=== PATIENT | male | born 1995 | race African-American/Black ===

== ENCOUNTER 2021-12-02 18:12 | Emergency (ER) | payer BC, OTHER ==
[2021-12-02] MEDS ORDERED: Ondansetron PF 4 MG/2 ML Vial ONE (19:02)
[2021-12-02 19:05] LABS: #Basophils 0.1 10x3/uL (0.0-0.2); #Eosinphils 0.1 10x3/uL (0.0-0.5); #Monocytes 0.6 10x3/uL (0.0-1.1); #Neutrophils 6.4 10x3/uL (1.5-8.4); %Basophils 0.6 % (0.0-2.0); %Eosinophils 0.6 % (0.0-6.0); %Lymphocytes 19.3 % (18.0-47.0); %Monocytes 7.1 % (0.0-10.0); %Neutrophils 72.1 % (40.0-75.0); Hemoglobin 15.9 g/dL (13.5-17.5); Mean Corpuscular HGB CONC 34.3 g/dL (32.0-36.0); Mean Corpuscular Hemoglobin 32.3 pg (27.0-33.0); Mean Corpuscular Volume 94.3 fl (81.2-95.1); Mean Platelet Volume 12.5 fl (7.4-10.4); Platelet Count 121 10x3/uL (150-450); RBC Distribution Width 12.6 % (11.5-14.5); Red Blood Cell (RBC) Count 4.92 10x6/uL (4.32-5.72); White Blood Cell (WBC) Count 8.8 10x3/uL (3.5-10.5)
[2021-12-02 19:18] LABS: ALT (SGPT) 18 U/L (8-55); AST (SGOT) 22 U/L (5-34); Albumin 4.5 g/dL (3.5-5.0); Alkaline Phosphatase 118 U/L (40-110); Anion Gap 13 mmol/L (10-20); BUN (Urea Nitrogen) 9 mg/dL (8.9-20.6); Bilirubin, Total 0.8 mg/dL (0.2-1.2); Calc. Creatinine Clearance 0 mL/min (70-130); Calcium 9.9 mg/dL (7.8-10.44); Carbon Dioxide 28 mmol/L (22-29); Chloride 101 mmol/L (98-107); Glucose 86 mg/dL (70-105); Lipase 21 U/L (8-78); Potassium 3.3 mmol/L (3.5-5.1); Protein, Total 7.5 g/dL (6.0-8.3); Sodium 139 mmol/L (136-145)
[2021-12-02] MEDS ORDERED: Ketorolac Tromethamine 30 MG/ML VIAL ONE (20:20)
== END 2021-12-02 21:11 | disposition home or self-care (01) ==
LOC: CSHERS 18:12
DX: R51.9 Headache, unspecified (principal); I10 Essential (primary) hypertension; F17.210 Nicotine dependence, cigarettes, uncomplicated
CPT/HCPCS: 70450; 80053; 83690; 85025; 93005; 96374; 96375; J1885; J2405

== ENCOUNTER 2023-08-16 19:55 | Emergency (ER) | payer OTHER, SELFPAY ==
[2023-08-16] MEDS ORDERED: Ketorolac Tromethamine 30 MG (1 mL) VIAL ONE (20:19)
[2023-08-16 20:42] LABS: Hematocrit 41.8 % (38.8-50.0); Hemoglobin 14.1 g/dL (13.5-17.5); Mean Corpuscular HGB CONC 33.7 g/dL (32.0-36.0); Mean Corpuscular Hemoglobin 31.7 pg (27.0-33.0); Mean Corpuscular Volume 93.9 fl (81.2-95.1); Mean Platelet Volume 11.8 fl (7.4-10.4); Platelet Count 174 10x3/uL (150-450); RBC Distribution Width 13.1 % (11.5-14.5); Red Blood Cell (RBC) Count 4.45 10x6/uL (4.32-5.72); White Blood Cell (WBC) Count 11.1 10x3/uL (3.5-10.5)
[2023-08-16 20:59] LABS: ALT (SGPT) 19 U/L (8-55); AST (SGOT) 20 U/L (5-34); Albumin 4.2 g/dL (3.5-5.0); Alkaline Phosphatase 113 U/L (40-110); Anion Gap 13 mmol/L (10-20); BUN (Urea Nitrogen) 15 mg/dL (8.9-20.6); Bilirubin, Total 0.4 mg/dL (0.2-1.2); Calc. Creatinine Clearance 0 mL/min (70-130); Calcium 9.3 mg/dL (7.8-10.44); Carbon Dioxide 25 mmol/L (22-29); Chloride 104 mmol/L (98-107); Estimated GFR 96; Globulin 3.2 g/dL (2.4-3.5); Glucose 85 mg/dL (70-105); Potassium 3.5 mmol/L (3.5-5.1); Protein, Total 7.4 g/dL (6.0-8.3); Sodium 138 mmol/L (136-145)
[2023-08-16 21:41] LABS: MDiff Complete? YES
[2023-08-16 21:48] LABS: Bilirubin Neg (Negative); Blood, Urine 250 (Negative); Clarity Cloudy (Clear); Glucose, Urine (Dipstick) Normal (Negative); Ketone, Urine Negative (Negative); Leukocyte 500 (Negative); Nitrite Positive (Negative); Protein, Urine (Dipstick) 100 mg/dl (Neg-Trace); Urobilinogen Normal mg/dL (Less than 2)
[2023-08-16 21:56] LABS: Platelet Adequacy Comment Appears Adequate; RBC Morph Comment Within Normal Limits
[2023-08-16 21:57] LABS: Band 5 % (5-11); Eosinophils 2 % (0-10); Lymphocytes 15 % (21-51); Monocytes 6 % (0-10); Neutrophil 72 % (42-75)
[2023-08-16 22:09] LABS: CAUTI Indications for Culture Pelvic or flank pain; RBC/HPF Greater than 50 HPF (0-3); WBC/HPF Greater than 50 HPF (0-3)
[2023-08-16 22:10] LABS: Bacteria/HPF 3+ HPF (None Seen); Squamous Epithelial 0-3 HPF (0-3)
[2023-08-16 22:12] LABS: Urine Culture Reflex Yes Yes
[2023-08-16] MEDS ORDERED: cefTRIAXone (ROCEPHIN) 500 MG VIAL ONE (22:57)
[2023-08-16] MEDS ORDERED: Doxycycline 100 MG VIAL ONE (22:57)
[2023-08-16] MEDS ORDERED: Lidocaine 1% MPF 2 ML VIAL ONE (23:02)
[2023-08-16] MEDS ORDERED: Doxycycline 100 MG CAP PO SCH (23:15)
== END 2023-08-16 23:09 | disposition home or self-care (01) ==
LOC: CSHERS 19:55
DX: N34.1 Nonspecific urethritis (principal); I10 Essential (primary) hypertension; F17.210 Nicotine dependence, cigarettes, uncomplicated; R00.0 Tachycardia, unspecified; Z79.899 Other long term (current) drug therapy
CPT/HCPCS: 36415; 74176; 80053; 81001; 85025; 87077; 87086; 87186; 96372; 96374; J0696; J1885

== ENCOUNTER 2024-04-28 15:08 | Emergency (ER) | payer OTHER ==
[2024-04-28] MEDS ORDERED: Ondansetron PF 4 MG/2 ML Vial ONE (15:39)
[2024-04-28 16:14] LABS: Hematocrit 48.1 % (38.8-50.0); Hemoglobin 16.4 g/dL (13.5-17.5); Mean Corpuscular HGB CONC 34.1 g/dL (32.0-36.0); Mean Corpuscular Hemoglobin 32.3 pg (27.0-33.0); Mean Corpuscular Volume 94.7 fL (81.2-95.1); Mean Platelet Volume 10.9 fL (7.4-10.4); Platelet Count 193 10x3/uL (150-450); RBC Distribution Width 12.2 % (11.5-14.5); Red Blood Cell (RBC) Count 5.08 10x6/uL (4.32-5.72); White Blood Cell (WBC) Count 11.2 10x3/uL (3.5-10.5)
[2024-04-28 16:15] LABS: MDiff Complete? YES
[2024-04-28 16:22] LABS: ALT (SGPT) 32 U/L (8-55); AST (SGOT) 34 U/L (5-34); Albumin 4.9 g/dL (3.5-5.0); Alcohol Less than 10.0 mg/dL (Less than 10); Alkaline Phosphatase 119 U/L (40-110); Anion Gap 22 mmol/L (10-20); BUN (Urea Nitrogen) 17 mg/dL (8.9-20.6); Bilirubin, Total 0.8 mg/dL (0.2-1.2); Calc. Creatinine Clearance 0 mL/min (70-130); Calcium 10.3 mg/dL (7.8-10.44); Carbon Dioxide 20 mmol/L (22-29); Chloride 99 mmol/L (98-107); Estimated GFR 90; Globulin 3.3 g/dL (2.4-3.5); Glucose 105 mg/dL (70-105); Lipase 17 U/L (8-78); Potassium 3.6 mmol/L (3.5-5.1); Protein, Total 8.2 g/dL (6.0-8.3); Sodium 137 mmol/L (136-145)
[2024-04-28 16:33] LABS: Band 2 % (5-11); Lymphocytes 15 % (21-51); Monocytes 3 % (0-10); Neutrophil 80 % (42-75)
[2024-04-28 16:34] LABS: Platelet Adequacy Comment Appears Adequate; RBC Morph Comment Within Normal Limits
[2024-04-28] MEDS ORDERED: Ketorolac Tromethamine 30 MG (1 mL) VIAL ONE (17:15)
[2024-04-28 17:29] LABS: Bilirubin Neg (Negative); Blood, Urine Negative (Negative); Glucose, Urine (Dipstick) Normal (Negative); Ketone, Urine 150 mg/dL (Negative); Leukocyte Negative (Negative); Nitrite Negative (Negative); Protein, Urine (Dipstick) 15 mg/dl (Neg-Trace); Urobilinogen Normal mg/dL (Less than 2)
[2024-04-28 17:32] LABS: Clarity Clear (Clear)
[2024-04-28 17:42] LABS: CAUTI Indications for Culture Pelvic or flank pain; RBC/HPF None Seen HPF (0-3); Squamous Epithelial 0-3 HPF (0-3); WBC/HPF None Seen HPF (0-3)
[2024-04-28 17:43] LABS: Bacteria/HPF None Seen HPF (None Seen); Mucous/LPF 2+ LPF (<2+); Urine Culture Reflex No No
== END 2024-04-28 17:51 | disposition home or self-care (01) ==
LOC: CSHERS 15:08
DX: R11.2 Nausea with vomiting, unspecified (principal); I10 Essential (primary) hypertension; F17.210 Nicotine dependence, cigarettes, uncomplicated
CPT/HCPCS: 80053; 80307; 81001; 83690; 85025; 96361; 96374; 96375; J1885; J2405